=== PATIENT | female | born 1950 ===

== ENCOUNTER → 2020-04-08 | Emergency (ER) | payer OTHER ==
[~2020-04-08] VITALS: Ht 121.9 cm; Wt 114.8 kg
[~2020-04-08] MED LIST: ACID REDUCER20 M1; ATORVASTATIN CA10 MG; CHILDREN'S ASPI81 MG; DERMACINRX5000 UNIT; GRALISE600 MG; LASIX20 MG; METFORMIN HCL500 MG; SERTRALINE20 MG/1 ML; TENORMIN25 MG; TIROSINT50 MCG; ZANTAC25 MG/1 ML
== END | disposition home or self-care (01) ==
LOC: ER 10:06
DX: R41.82 Altered mental status, unspecified (principal); E11.649 Type 2 diabetes mellitus with hypoglycemia without coma; F41.0 Panic disorder [episodic paroxysmal anxiety]; Z03.818 Encounter for observation for suspected exposure to other biological agents ruled out